=== PATIENT | female | born 1945 | race Caucasian/White ===

== ENCOUNTER → 2019-12-10 11:31 | Outpatient (BNVA) | payer MEDICARE, SELFPAY | PROVIDERS: PCP Family Medicine; Visit Provider Nurse Practitioner Family | DX: N39.0 Urinary tract infection, site not specified (principal) | CPT/HCPCS: 81003 ==

== ENCOUNTER 2020-08-25 15:09 | Emergency (ER) | payer MEDICARE, OTHER, SELFPAY ==
--- NOTE | 2020-08-25 | XRR_ITS ---
[facility] Final Radiology Report Call: [phone] assistance Online chat: [email or web address] Name: JEANNE WILSON Age: 74Years F Date: 08/25/2020 SSN: -- : 1945 Study: XR CHEST 1 VIEW Requesting Physician: Kelley Martinez Images: 1 Add?l Studies: Provided Clinical History: CP PROCEDURE INFORMATION: Exam: XR Chest, 1 View Exam date and time: 08/25/2020 4:55 PM Age: 74 years old Clinical indication: Chest pain; Type not specified; Additional info: Cp TECHNIQUE: Imaging protocol: XR of the chest Views: 1 view. COMPARISON: No relevant prior studies available. FINDINGS: Lungs: No consolidative pulmonary infiltrate noted. Pleural space: No pleural effusion. No pneumothorax. Heart/Mediastinum: No cardiomegaly. Calcified right hilar lymph node, consistent with old granulomatous disease. Bones/joints: Unremarkable. IMPRESSION: 1. No acute cardiopulmonary disease demonstrated. 2. Changes of old granulomatous disease are identified. Thank you for allowing us to participate in the care of your patient. Dictated and Authenticated by: Demetrius Morrissey MD 08/25/2020 5:12 PM Central Time ([place] & [place]) [facility] SYSTEMAbdelrahman
[2020-08-25 15:14] VITALS: BP 113/63; PULSE 92; RESP 18; TEMP 36.4; O2SAT 96; BMI 27.1
[2020-08-25 15:36] VITALS: BP 113/63; PULSE 89; RESP 18; O2SAT 99
[2020-08-25 15:47] LABS: Glucose Point of Care 128 mg/dL (70-110)
--- NOTE | 2020-08-25 16:39 | ECG_ITS ---
[facility] Test Date: 2020-08-25 Pat Name: Marilee Arreaga Department: Room: Gender: Female Optometric Coordinator: : 1945 Requested By: Kelley Reyes Order Number: [id number] Flako MD: Milo Ely M.D. Measurements Intervals [place] Rate: 94 P: 119 LA: 165 QRS: 153 QRSD: 84 T: 108 QT: 391 QTc: 489 Interpretive Statements SINUS RHYTHM ARM LEADS REVERSED [INVERTED P AND QRS IN I] ATYPICAL ECG No previous ECG available for comparison Electronically Signed On 08-25-2020 18:37:06 CDT by Milo Ely M.D. https://[email or web address].Gastrofyfranklin county memorial hospitalMcKinnon & Clarkemercy health.[employer]/store/NU/[id number] f
[2020-08-25 17:03] LABS: Basophils # 0.1 10^3/uL (0.0-0.1); Basophils % 0.5 %; Eosinophils # 0.1 10^3/uL (0.0-0.8); Eosinophils % 0.8 %; Hematocrit 41.9 % (37.0-47.0); Hemoglobin 13.6 g/dL (11.5-15.3); Lymphocytes # 1.7 10^3/uL (0.8-4.8); Lymphocytes % 16.2 %; Mean Corpuscular HGB Conc 32.5 g/dL (30.0-36.0); Mean Corpuscular Hemoglobin 30.9 pg (28.0-34.0); Mean Corpuscular Volume 95.2 fL (81-99); Mean Platelet Volume 9.5 fL (7.4-10.4); Monocytes # 0.7 10^3/uL (0.2-0.9); Monocytes % 6.1 %; Neutrophils # 8.15 10^3/uL (1.8-7.7); Neutrophils % 76.1 %; Nucleated Red Blood Cells % 0 %; Platelet Count 243 10^3/cmm (130-400); Red Cell Distribution Width 11.9 % (12.1-15.1); White Blood Count 10.7 10^3/uL (4.0-10.0)
[2020-08-25 17:17] LABS: INR 0.98 (0.8-1.2)
[2020-08-25 17:23] LABS: Lactic Sepsis W/Reflex 2.9 mmol/L (0.5-2.2)
[2020-08-25 17:30] LABS: Troponin(5th) Baseline 19 ng/L (0-10)
[2020-08-25 17:38] LABS: Alanine Aminotransferase 27 U/L (0-33); Albumin Level 4.2 g/dL (3.5-5.2); Alkaline Phosphatase 70 IU/L (35-105); Anion Gap 16.5 (5-19); Aspartate Amino Transferase 34 U/L (0-32); Blood Urea Nitrogen 20 mg/dL (8-23); Calcium 9.7 mg/dL (8.5-10.5); Carbon Dioxide 26 mmol/L (22-29); Chloride 100 mmol/L (98-107); Globulin 2.8 g/dL (1.3-4.6); Glucose 126 mg/dL (65-115); Lipase 74 U/L (13-60); Magnesium 2.1 mg/dL (1.7-2.3); NT Pro B Type Natriuretic Pept 58 pg/mL (0-125); Osmolality Calculated 290 mOsm/kg (285-295); Potassium 4.5 mmol/L (3.5-5.1); Sodium 138 mmol/L (136-145); Total Bilirubin 0.3 mg/dL (0.15-1.2)
[2020-08-25 17:39] VITALS: BP 115/71; PULSE 91; RESP 20; O2SAT 96
[2020-08-25 17:59] LABS: Procalcitonin 0.07 ng/mL (0-0.5)
[2020-08-25 18:49] LABS: Reflex Lactate Order REFLEX LACTIC ORDERD
[2020-08-25 18:57] LABS: Add Urine Microscopic? NO
[2020-08-25 19:06] LABS: Bilirubin Urine Neg (Negative); Blood Urine Neg (Negative); Glucose Urine UA Norm (Normal); Ketones Urine Negative (Negative); Leukocyte Esterase Urine Negative (Negative); Nitrate Urine Negative (Negative); Protein Urine Neg (Negative); Urine Appearance Clear (CLEAR); Urine Color Yellow (Yellow); Urobilinogen Urine Norm (Negative); pH Urine 5 (5-7)
[2020-08-25 19:17] VITALS: BP 134/77; PULSE 100; RESP 18; O2SAT 96
[2020-08-25 19:46] LABS: Lactic Acid level (Lactate) 3.1 mmol/L (0.5-2.2)
[2020-08-25] MEDS: sodium chloride 0.9% 1,000 ML 999 ML IV (19:46)
[2020-08-25 19:49] LABS: Troponin 5 2HR 14.58 ng/L (0-10)
[2020-08-25 19:50] LABS: Troponin 5 2HR Delta -4.42 ABS# (0-10)
[2020-08-25 20:58] VITALS: BP 129/71; PULSE 92; RESP 17; TEMP 36.7; O2SAT 99
--- NOTE | 2020-08-25 22:39 | ECG_ITS ---
[facility] Test Date: 2020-08-25 Pat Name: Marilee Arreaga Department: Room: Gender: Female Transition Specialist: : 1945 Requested By: Kelley Reyes Order Number: [id number] Flako MD: Milo Ely M.D. Measurements Intervals [place] Rate: 97 P: 45 AL: 138 QRS: 28 QRSD: 88 T: 81 QT: 366 QTc: 467 Interpretive Statements SINUS RHYTHM NONSPECIFIC T-WAVE ABNORMALITY Compared to ECG 08/25/2020 16:09:29 T-wave abnormality now present Electronically Signed On 08-25-2020 18:54:50 CDT by Milo Ely M.D. [email or web address].[facility] Universitygreenwood leflore hospitalPractical EHR Solutionspromedica bay park hospital.[employer]/store/OM/[id number]
--- NOTE | 2020-08-27 11:14 | W.ED.DIZZY ---
HPI - Dizziness General: Chief Complaint: Dizziness Stated Complaint: WEAKNESS/ LOW BP Time Seen by Provider: 08/25/20 15:34 History of Present Illness: HPI Narrative: This patient is a generally healthy, very active 74-year-old female who presents with an episode of diaphoresis and near syncope. She said she went about her normal routine this morning which included water aerobics and a light breakfast of toast and cheese. She then was at the [employer] garden doing some gardening and suddenly became diaphoretic and lightheaded. She had to sit down because she thought she was in a pass out. The symptoms eventually resolved although she said she still feels more tired than usual. She said it was not unusually hot out and she was not doing anything particularly strenuous when this happened. She has not had these symptoms previously. She denies any recent illnesses. She does have a history of irritable bowel syndrome and has been having a lot of diarrhea recently. MD elicited complaint: lightheadedness and near syncope Onset (ago): hour(s) (1) Timing: sudden onset Severity: moderate Description: lightheadedness and near-syncope Exacerbating factors: nothing Relieving factors: lying down Associated symptoms: Reports no associated symptoms and diaphoresis; Denies chest pain, headache(s), nausea or vomiting Associated neuro symptoms: Reports no associated symptoms; Deny numbness in extremities Review of Systems General: Reports: 10 or more systems reviewed and unremarkable except in HPI and below Const: Reports: diaphoresis Eyes: Denies: change in vision ENMT: Denies: odynophagia Card: Denies: chest pain or swelling of feet/ankles Resp: Denies: dyspnea, productive cough or non-productive cough GI: Reports: diarrhea and GI cramping; Denies: abdominal pain, nausea or vomiting : Denies: flank pain or difficulty voiding Musc: Denies: neck pain or back pain Skin/Breast: Denies: rash Neuro: Denies: headache(s), numbness in extremities or weakness in extremities Tacho/Lymph: Denies: easy bruising or easy bleeding PFSH ED PFSH: Social History Smoking and tobacco status: never smoked Alcohol intake: current Alcohol intake frequency: holidays/special occasions only Physical Exam Const: COMMON NORMALS: no acute distress, patient oriented x3, no limitations and alert GENERAL APPEARANCE: cooperative and comfortable HENMT: HEAD & SCALP: normal to inspection FACE & SINUS: normal facial exam Eye: GENERAL EYE: appearance normal, both eyes and all related structures Neck/C-Spine: COMMON NORMALS: supple, no meningeal signs and no JVD Chest: COMMONS NORMALS: normal inspection of the chest Resp: COMMON NORMALS: normal respiratory effort, No use of accessory muscles and clear to auscultation bilaterally AUSCULTATION: clear to auscultation bilaterally Cardio: COMMON NORMALS: no JVD, regular rate, regular rhythm and No murmurs present (Cardio) RATE: regular rate RHYTHM: regular rhythm GI: COMMON NORMALS: Normal to inspection, nondistended, normoactive bowel sounds present, Soft to palpation and non-tender INSPECTION: Yes normal to inspection AUSCULTATION: Yes normoactive bowel sounds PALPATION: Yes Soft to palpation Back/Pelvis: COMMON NORMALS: thoracic and lumbar spine normal to inspection Extremity: COMMON NORMALS: normal to inspection Neuro: COMMON NORMALS: patient oriented x3, moves all extremities, no focal motor deficits and no sensory deficits noted SENSORIUM/ORIENTATION: Yes alert MENINGEAL SIGNS: Yes no meningeal signs Psych: COMMON NORMALS: mental status grossly normal, cooperative and normal affect Skin: COMMON NORMALS: no rashes or lesions noted and turgor normal GENERAL SKIN EXAM: no rashes or lesions noted and turgor normal Course ED course: Patient's work-up was unremarkable for any cardiac dysfunction. She felt better after some fluids. I think she may have just been dehydrated. We discussed that although we did not find anything today she may need further evaluation and should definitely follow-up with her primary care doctor. Vital Signs: Vital signs: Vital Signs Temperature 98.1 F 08/25/20 20:58 Pulse Rate 92 08/25/20 20:58 Respiratory Rate 17 08/25/20 20:58 Blood Pressure 129/71 08/25/20 20:58 Pulse Oximetry 99 08/25/20 20:58 MDM - Dizziness Lab Data: Labs: Lab Results 08/25/20 08/25/20 08/25/20 Range/Units 15:43 16:54 16:54 WBC 10.7 H (4.0-10.0) 10^3/ uL RBC 4.40 (4.1-5.3) 10^6/u L Hgb 13.6 (11.5-15.3) g/dL Hct 41.9 (37.0-47.0) % MCV 95.2 (81-99) fL MCH 30.9 (28.0-34.0) pg MCHC 32.5 (30.0-36.0) g/dL RDW 11.9 L (12.1-15.1) % Plt Count 243 (130-400) 10^3/c mm MPV 9.5 (7.4-10.4) fL Neut % (Auto) 76.1 % Lymph % (Auto) 16.2 % Runnels % (Auto) 6.1 % Eos % (Auto) 0.8 % Baso % (Auto) 0.5 % Neut # (Auto) 8.15 H (1.8-7.7) 10^3/u L Lymph # (Auto) 1.7 (0.8-4.8) 10^3/u L Runnels # (Auto) 0.7 (0.2-0.9) 10^3/u L Eos # (Auto) 0.1 (0.0-0.8) 10^3/u L Baso # (Auto) 0.1 (0.0-0.1) 10^3/u L Nucleated RBC % (a uto) 0 % Nucleated RBCs # 0.0 /100WBC PT (12.1-14.9) SECO NDS INR (0.8-1.2) Sodium 138 (136-145) mmol/L Potassium 4.5 (3.5-5.1) mmol/L Chloride 100 (98-107) mmol/L Carbon Dioxide 26 (22-29) mmol/L Anion Gap 16.5 (5-19) BUN 20 (8-23) mg/dL Creatinine 1.2 H (0.5-0.9) mg/dL GFR Calculation Not Reportable Glucose 126 H (65-115) mg/dL POC Glucose 128 (70-110) mg/dL Calculated Osmolal ity 290 (285-295) mOsm/k g Lactic Acid (0.5-2.2) mmol/L Lactic Acid (Sepsi s) (0.5-2.2) mmol/L Calcium 9.7 (8.5-10.5) mg/dL Magnesium 2.1 (1.7-2.3) mg/dL Total Bilirubin 0.3 (0.15-1.2) mg/dL AST 34 H (0-32) U/L ALT 27 (0-33) U/L Alkaline Phosphata se 70 (35-105) IU/L Troponin T Baselin e (0-10) ng/L Troponin T 120 Min three affiliated (0-10) ng/L Delta Troponin T (0-10) ABS# NT-Pro-B Natriuret Pep 58 (0-125) pg/mL Total Protein 7.0 (6.6-8.7) g/dL Albumin 4.2 (3.5-5.2) g/dL Globulin 2.8 (1.3-4.6) g/dL Lipase 74 H (13-60) U/L Procalcitonin 0.07 (0-0.5) ng/mL Urine Color (Yellow) Urine Appearance (CLEAR) Urine pH (5-7) Ur Specific Gravit y (1.005-1.030) Urine Protein (Negative) Urine Glucose (UA) (Normal) Urine Ketones (Negative) Urine Blood (Negative) Urine Nitrate (Negative) Urine Bilirubin (Negative) Urine Urobilinogen (Negative) mg/dL Ur Leukocyte Janeth ase (Negative) 08/25/20 08/25/20 08/25/20 Range/Units 16:54 16:54 16:54 WBC (4.0-10.0) 10^3/ uL RBC (4.1-5.3) 10^6/u L Hgb (11.5-15.3) g/dL Hct (37.0-47.0) % MCV (81-99) fL MCH (28.0-34.0) pg MCHC (30.0-36.0) g/dL RDW (12.1-15.1) % Plt Count (130-400) 10^3/c mm MPV (7.4-10.4) fL Neut % (Auto) % Lymph % (Auto) % Runnels % (Auto) % Eos % (Auto) % Baso % (Auto) % Neut # (Auto) (1.8-7.7) 10^3/u L Lymph # (Auto) (0.8-4.8) 10^3/u L Runnels # (Auto) (0.2-0.9) 10^3/u L Eos # (Auto) (0.0-0.8) 10^3/u L Baso # (Auto) (0.0-0.1) 10^3/u L Nucleated RBC % (a uto) % Nucleated RBCs # /100WBC PT 13.30 (12.1-14.9) SECO NDS INR 0.98 (0.8-1.2) Sodium (136-145) mmol/L Potassium (3.5-5.1) mmol/L Chloride (98-107) mmol/L Carbon Dioxide (22-29) mmol/L Anion Gap (5-19) BUN (8-23) mg/dL Creatinine (0.5-0.9) mg/dL GFR Calculation Glucose (65-115) mg/dL POC Glucose (70-110) mg/dL Calculated Osmolal ity (285-295) mOsm/k g Lactic Acid 2.9 H (0.5-2.2) mmol/L Lactic Acid (Sepsi s) (0.5-2.2) mmol/L Calcium (8.5-10.5) mg/dL Magnesium (1.7-2.3) mg/dL Total Bilirubin (0.15-1.2) mg/dL AST (0-32) U/L ALT (0-33) U/L Alkaline Phosphata se (35-105) IU/L Troponin T Baselin e 19 H (0-10) ng/L Troponin T 120 Min three affiliated (0-10) ng/L Delta Troponin T (0-10) ABS# NT-Pro-B Natriuret Pep (0-125) pg/mL Total Protein (6.6-8.7) g/dL Albumin (3.5-5.2) g/dL Globulin (1.3-4.6) g/dL Lipase (13-60) U/L Procalcitonin (0-0.5) ng/mL Urine Color (Yellow) Urine Appearance (CLEAR) Urine pH (5-7) Ur Specific Gravit y (1.005-1.030) Urine Protein (Negative) Urine Glucose (UA) (Normal) Urine Ketones (Negative) Urine Blood (Negative) Urine Nitrate (Negative) Urine Bilirubin (Negative) Urine Urobilinogen (Negative) mg/dL Ur Leukocyte Janeth ase (Negative) 08/25/20 08/25/20 08/25/20 Range/Units 18:47 19:20 19:20 WBC (4.0-10.0) 10^3/ uL RBC (4.1-5.3) 10^6/u L Hgb (11.5-15.3) g/dL Hct (37.0-47.0) % MCV (81-99) fL MCH (28.0-34.0) pg MCHC (30.0-36.0) g/dL RDW (12.1-15.1) % Plt Count (130-400) 10^3/c mm MPV (7.4-10.4) fL Neut % (Auto) % Lymph % (Auto) % Runnels % (Auto) % Eos % (Auto) % Baso % (Auto) % Neut # (Auto) (1.8-7.7) 10^3/u L Lymph # (Auto) (0.8-4.8) 10^3/u L Runnels # (Auto) (0.2-0.9) 10^3/u L Eos # (Auto) (0.0-0.8) 10^3/u L Baso # (Auto) (0.0-0.1) 10^3/u L Nucleated RBC % (a uto) % Nucleated RBCs # /100WBC PT (12.1-14.9) SECO NDS INR (0.8-1.2) Sodium (136-145) mmol/L Potassium (3.5-5.1) mmol/L Chloride (98-107) mmol/L Carbon Dioxide (22-29) mmol/L Anion Gap (5-19) BUN (8-23) mg/dL Creatinine (0.5-0.9) mg/dL GFR Calculation Glucose (65-115) mg/dL POC Glucose (70-110) mg/dL Calculated Osmolal ity (285-295) mOsm/k g Lactic Acid (0.5-2.2) mmol/L Lactic Acid (Sepsi s) 3.1 H (0.5-2.2) mmol/L Calcium (8.5-10.5) mg/dL Magnesium (1.7-2.3) mg/dL Total Bilirubin (0.15-1.2) mg/dL AST (0-32) U/L ALT (0-33) U/L Alkaline Phosphata se (35-105) IU/L Troponin T Baselin e (0-10) ng/L Troponin T 120 Min three affiliated 14.58 H (0-10) ng/L Delta Troponin T -4.42 L (0-10) ABS# NT-Pro-B Natriuret Pep (0-125) pg/mL Total Protein (6.6-8.7) g/dL Albumin (3.5-5.2) g/dL Globulin (1.3-4.6) g/dL Lipase (13-60) U/L Procalcitonin (0-0.5) ng/mL Urine Color Yellow (Yellow) Urine Appearance Clear (CLEAR) Urine pH 5 (5-7) Ur Specific Gravit y 1.020 (1.005-1.030) Urine Protein Neg (Negative) Urine Glucose (UA) Norm (Normal) Urine Ketones Negative (Negative) Urine Blood Neg (Negative) Urine Nitrate Negative (Negative) Urine Bilirubin Neg (Negative) Urine Urobilinogen Norm (Negative) mg/dL Ur Leukocyte Janeth ase Negative (Negative) Discharge Plan Discharge Patient Disposition: Home Clinical Impression: Postural dizziness with near syncope Condition: Stable Prescriptions: No Action venlafaxine 75 mg capsule,extended release 24hr 75 mg PO BID RF: 0 acyclovir 200 mg capsule 200 mg PO DAILY RF: 0 hydrocodone-acetaminophen 7.5-325 mg tablet 1 tab PO BID PRN (Reason: Pain) RF: 0 lisinopril-hydrochlorothiazide 20-12.5 mg Tablet 1 tab PO DAILY RF: 0 Discharge Orders: Discharge Order (Routine); Ordered 08/25/20 Ordered By: Kelely Martinez Referrals: Arnaud Blair DO [Primary Care Provider] - Discharge Diet: Usual diet Discharge Activity: Resume usual activity Patient Instructions: Dehydration (ED), Near Syncope (ED) Activity Restrictions/Additional Instructions: Make sure to drink plenty of fluids and eat regular snacks and meals. Rest. Follow-up with your doctor to discuss today's episode and to determine if further evaluation and treatment is needed. Return to the emergency department if another episode occurs or if there are any other new or concerning symptoms. Discharge Date/Time: 08/25/20 20:58 Coding Level of Care Code ED Guitar Maker Hand for Ana Ragsdale
== END 2020-08-25 20:58 | disposition home or self-care (01) ==
PROVIDERS: Emergency Provider Emergency Medicine; PCP Family Medicine
DX: R55 Syncope and collapse (principal); R42 Dizziness and giddiness; R07.9 Chest pain, unspecified
CPT/HCPCS: 12345; 36415; 36416; 71045; 80053; 81003; 82962; 83605; 83690; 83735; 83880; 84145; 84484; 85025; 85610; 93005; 96360; 99284; J7030

== ENCOUNTER 2021-09-18 12:18 | Outpatient (RCR) | payer MEDICARE, OTHER, SELFPAY | END 2021-10-16 23:59 | disposition home or self-care (01) | LOC: SPT 12:18 | PROVIDERS: PCP Family Medicine; Referring Provider Family Medicine; Visit Provider Family Medicine | DX: H81.10 Benign paroxysmal vertigo, unspecified ear (principal) | CPT/HCPCS: 95992; 97162 ==

== ENCOUNTER 2021-10-17 06:00 | Outpatient (RCR) | payer MEDICARE, OTHER, SELFPAY | END 2021-11-16 23:59 | disposition home or self-care (01) | LOC: SPT 06:00 | PROVIDERS: PCP Family Medicine; Referring Provider Family Medicine; Visit Provider Family Medicine | DX: H81.10 Benign paroxysmal vertigo, unspecified ear (principal) | CPT/HCPCS: 95992; 97164 ==

== ENCOUNTER 2022-01-15 09:24 | Outpatient (CLI) | payer MEDICARE, OTHER, SELFPAY ==
--- NOTE | 2022-01-15 09:42 | XR_ITS ---
WS: [id number] PELVIS: AP VIEW SUBMITTED HISTORY: PELVIC PAIN COMPARISON: None available. Mild narrowing of the SI joints and hip joints. Moderate narrowing of the L4-5 disc space which is as ymmetric and greatest on the LEFT. Chronic endplate degenerative changes at L4-5. No soft tissue mass es. No destructive bone lesions. There is a pain pump centered over the LEFT ilium. XR/XR pelvis 1-2V* [id number] IMPRESSION: 1. No fracture or destructive bone lesions. 2. Moderate degenerative disc disease and hypertrophic osteophytes at L4-5. 3. Very mild SI joint and hip joint narrowing.
--- NOTE | 2022-01-15 09:42 | XR_ITS ---
WS: [id number] LUMBAR SPINE: 3 VIEWS TECHNIQUE: AP, lateral and L5-S1 spot. HISTORY: LUMBAR RADICULOPATHY COMPARISON: None available. Mild LEFT rotoscoliosis of the lumbar spine. L5 anterolisthesis by 3 mm. Asymmetric disc space narrow ing due to the curvature. More significant disc space narrowing and facet joint arthritis at L4-5. Pe dicles are all identified. No fractures. No destructive bone lesion. Mild narrowing of the SI joints. Generator of a pain pump over the LEFT ilium. Lead wires extend anterior to the sacrum. XR/XR lumbar spine 2-3V* [id number] IMPRESSION: 1. Mild LEFT rotoscoliosis lumbar spine with diffuse asymmetric disc space kenzie rowing and facet arthritis. 2. Most significant facet joint arthritis and disc space narrowing is at L4-5. 3. Very slight anterolisthesis of L5 by 3 mm.
== END 2022-01-15 09:25 | disposition home or self-care (01) ==
PROVIDERS: PCP Family Medicine; Visit Provider Family Medicine
DX: M54.16 Radiculopathy, lumbar region (principal); M51.36 Other intervertebral disc degeneration, lumbar region; M25.78 Osteophyte, vertebrae; M41.86 Other forms of scoliosis, lumbar region; M47.816 Spondylosis without myelopathy or radiculopathy, lumbar region
CPT/HCPCS: 72100; 72170

== ENCOUNTER → 2022-08-06 10:41 | Outpatient (BNVA) | payer MEDICARE, OTHER, SELFPAY | PROVIDERS: PCP Family Medicine; Visit Provider Internal Medicine Cardiovascular Disease | DX: R55 Syncope and collapse (principal); R00.0 Tachycardia, unspecified; R00.2 Palpitations; Z79.01 Long term (current) use of anticoagulants; R53.1 Weakness; I12.9 Hypertensive chronic kidney disease with stage 1 through stage 4 chronic kidney disease, or unspecified chronic kidney disease; N18.9 Chronic kidney disease, unspecified | CPT/HCPCS: 36415; 80053; 84443; 85025; 93005; 99204; 99205 ==

== ENCOUNTER 2022-09-18 07:42 | Outpatient (CLI) | payer MEDICARE, OTHER, SELFPAY ==
--- NOTE | 2022-09-18 08:45 | US_ITS ---
WS: [id number] RIGHT UPPER QUADRANT ULTRASOUND HISTORY: Elevated transaminases COMPARISON: None available. Liver: 16.3 cm in length. Normal size liver. Liver is very mildly echogenic and course. No mass or bi le duct dilatation. Portal Vein: Normal hepatopetal flow with monophasic waveform. Gallbladder: Normally distended gallbladder with no stones or wall thickening. CBD: 0.4 cm Pancreas: Normal size and echogenicity. Right kidney: 10.6 cm in length. Normal size and echogenicity. No hydronephrosis or mass. Aorta and IVC: Unremarkable abdominal aorta and IVC. No ascites. US/US liver [id number] IMPRESSION: Normal RIGHT upper quadrant ultrasound.
== END 2022-09-18 07:43 | disposition home or self-care (01) ==
LOC: RAD 07:43
PROVIDERS: PCP Family Medicine; Visit Provider Family Medicine
DX: R74.01 Elevation of levels of liver transaminase levels (principal)
CPT/HCPCS: 76705

== ENCOUNTER 2022-10-03 12:47 | Outpatient (CLI) | payer MEDICARE, OTHER, SELFPAY ==
--- NOTE | 2022-10-03 13:30 | USCV_ITS ---
Margejocy Marilee Age: 76 Gender: F : 1945 Exam Date: 10/03/2022 13:26 Ordering Phys: Gladis Elizabeth MD ([email or web address]) Technologist: Pilo Majano [place] [facility] [place]ication: abnormal ekg BP: 140 / 102 HR: 87 Rhythm: Sinus Technical Quality: Adequate MEASUREMENTS (Male / Female) Normal Values 2D ECHO LV Diastolic Diameter PLAX 2.1 cm 4.2 - 5.9 / 3.9 - 5.3 cm LV Systolic Diameter PLAX 1.5 cm IVS Diastolic Thickness 0.8 cm 0.6 - 1.0 / 0.6 - 0.9 cm IVS Systolic Thickness 0.8 cm LVPW Diastolic Thickness 1.1 cm 0.6 - 1.0 / 0.6 - 0.9 cm LVPW Systolic Thickness 0.9 cm LVOT Diameter 2.0 cm LV Ejection Fraction 2D Teich 59.9 % LV Ejection Fraction MOD 2C 63.5 % LV Ejection Fraction 2C AL 63.0 % LA Diameter 3.0 cm LA Width 2.6 cm LA Height 3.7 cm RA Width 2.3 cm RA Height 3.3 cm Aorta at Sinotubular Diameter 2.4 cm IVC Diameter 1.4 cm M-MODE Aortic Annulus Diameter 2.2 cm LA Ao Ratio MM 1.4 MV E Point Septal Separation 0.6 cm DOPPLER AV Peak Velocity 105.0 cm/s LVOT Peak Velocity 92.0 cm/s AV Area Cont Eq vti 2.4 cm squared AV Area Cont Eq pk 2.8 cm squared MV Peak Velocity 102.0 cm/s MV Area PHT 5.0 cm squared Mitral E to A Ratio 0.4 MV E' Velocity 22.0 cm/s Mitral E to MV E' Ratio 6.6 Mitral E to LV E' Lateral Ratio 6.6 Mitral E to LV E' Septal Ratio 6.6 TR Peak Velocity 232.1 cm/s TR Peak Gradient 21.5 mmHg TR Mean Velocity 191.6 cm/s TR Mean Gradient 14.9 mmHg TR Velocity Time Integral 58.3 cm Right Atrial Pressure 3.0 mmHg Pulmonary Artery Systolic Pressu 24.5 mmHg PV Peak Velocity 72.0 cm/s RV Acceleration Time 0.1 s RV Ejection Time 0.2 s RV AcT/ET 0.5 FINDINGS Left Ventricle Normal left ventricular size and systolic function, EF 67 %. No regional wall motion abnormalities. Grade I/IV diastolic dysfunction (abnormal relaxation filling pattern), normal to mildly elevated filling pressures. Right Ventricle The right ventricle is normal in size and function. Right Atrium The right atrium is normal in size. Left Atrium The left atrium is normal in size. Mitral Valve Thickened mitral valve. Trace mitral valve regurgitation. Aortic Valve No gross abnormalities noted Tricuspid Valve Trace to mild tricuspid valve regurgitation. Pulmonic Valve Pulmonic valve not well visualized. Pericardium Normal pericardium without effusion. Aorta Normal aortic annulus size. IVC Normal inferior vena cava. CONCLUSIONS Normal left ventricular size and systolic function, EF 67 %. No regional wall motion abnormalities. Grade I/IV diastolic dysfunction (abnormal relaxation filling pattern), normal to mildly elevated filling pressures. Thickened mitral valve. Trace mitral valve regurgitation. Trace to mild tricuspid valve regurgitation. Estimated pulmonary artery peak systolic pressure was 25 mmHg There is no pericardial effusion. No similar previous studies are available for comparison Dr Gladis Elizabeth MD [facility] (Electronically Signed) Final Date: 03 October 2022 21:31 S
== END 2022-10-03 12:48 | disposition home or self-care (01) ==
LOC: RAD 12:48
PROVIDERS: PCP Family Medicine; Visit Provider Internal Medicine Cardiovascular Disease
DX: R00.0 Tachycardia, unspecified (principal); R06.09 Other forms of dyspnea; I08.1 Rheumatic disorders of both mitral and tricuspid valves
CPT/HCPCS: 93306

== ENCOUNTER → 2022-10-30 10:20 | Outpatient (BNVA) | payer MEDICARE, SELFPAY | PROVIDERS: PCP Family Medicine; Visit Provider Nurse Practitioner Family | DX: R55 Syncope and collapse (principal) | CPT/HCPCS: 99213 ==

== ENCOUNTER 2023-01-13 07:03 | Outpatient (CLI) | payer MEDICARE, SELFPAY ==
[2023-01-13 07:34] VITALS: BMI 26.4
--- NOTE | 2023-01-13 07:37 | ECG_ITS ---
[facility] Test Date: 2023-01-13 Pat Name: Marilee Arreaga Department: Room: Gender: Female Banking Teacher: : 1945 Requested By: Glaids Elizabeth Order Number: [id number] Flako MD: Gladis Elizabeth M.D. Interpretive Statements NAME OF STUDY: LEXISCAN SESTAMIBI STRESS TEST INDICATION: Shortness of Breath; Chest Pain, PROCEDURE: At the baseline, the EKG revealed normal sinus rhythm with normal ST Ts. The baseline heart was 68 bpm with a blood pressue of 168/90 mm of Hg Lexiscan was infused over a period of 20 seconds. A total of 0.4 milligrams of Lexiscan was infused. The stress phase was continued for a total of 5 minutes. Heart rate at the end of the stress phase was left anterior descending artery bpm with a blood pressure 173/73 mm of Hg. The EKG at the peak infusion revealed no significant changes. Sestamibi was injected 20 seconds after the Lexiscan infusion. Heart rate at the end of the recovery phase was 79 bpm with a blood pressure of 167/84 mm of Hg. CONCLUSION: 1. No significant EKG changes with the LexiScan infusion 2. No LexiScan induced chest pain or cardiac arrhythmia 3. Normal blood pressure and heart rate response 4. Sestamibi/sestamibi perfusion scan pending; see separate report. Electronically Signed On 01-18-2023 15:46:03 BOGGER OPERATOR by Gladis Elizabeth M.D. [id number]
--- NOTE | 2023-01-13 07:37 | NMCV_ITS ---
NM shoaib perf SPECT r/s* [id number] Marilee Arreaga Age: 77 Gender: F : 1945 Exam Date: 01/13/2023 08:17 Ordering Phys: Gladis Elizabeth MD ([email or web address]) Technologist: ALEJANDRA Moreno Exam Location: [facility] Indications: DIZZY STRESS TEST Please [facility] IMAGE PROTOCOL Rest/Stress 1 Lexiscan Day Radiopharmaceutical Dose (mCi) Administration Site Administered by Rest: Tc-99m 10.5 IV LAEJANDRA Lazar Sestamibi Stress:Tc-99m 32.5 IV ALEJANDRA Lazar Sestamibi Rest: 13-Jan-2023 60 Discovery 630 Stress: 13-Jan-2023 30 Discovery 630 0.4mg Lexiscan. Images obtained in supine and prone position. SPECT RESULTS Technical Quality: Excellent Raw Data Analysis: Normal Image Corrections: No attenuation or motion correction applied Summed Stress Score: 0 Summed Rest Score: 0 Summed Difference Score: 0 PERFUSION FINDINGS Fairly uniform myocardial tracer uptake. No significant perfusion abnormalities FUNCTIONAL RESULTS (calculated via Gated SPECT) Stress Image LV EF (%): 73 Stress EDV (mL):55 TID: 1 Stress ESV (mL):15 FUNCTIONAL FINDINGS: Segmental wall motion analysis revealing no gross wall motion abnormalities IMPRESSIONS 1. Myocardial perfusion imaging revealing uniform myocardial tracer uptake with no significant perfusion abnormalities. 2. Normal LV ejection fraction of 73%. 3. LV wall motion analysis revealing no gross wall motion abnormalities. 4. Normal LV volume No similar previous studies are available for comparison Dr Gladis Elizabeth MD FAC (Electronically Signed) Final Date: 13 January 2023 13:38 S
[2023-01-13] MEDS: regadenoson 0.4 Mg/5 ml Syringe IVP (08:58)
[2023-01-13 09:17] VITALS: BP 167/84; PULSE 77
== END 2023-01-13 07:04 | disposition home or self-care (01) ==
LOC: CDL 07:08
PROVIDERS: PCP Family Medicine; Visit Provider Internal Medicine Cardiovascular Disease
DX: R42 Dizziness and giddiness (principal)
CPT/HCPCS: 36415; 78452; 93017; 96374; A9500; J2785

== ENCOUNTER → 2023-05-05 14:41 | Outpatient (BNVA) | payer MEDICARE, SELFPAY | PROVIDERS: PCP Family Medicine; Visit Provider Specialist | DX: I10 Essential (primary) hypertension (principal); R55 Syncope and collapse | CPT/HCPCS: 99214 ==

== ENCOUNTER → 2023-07-28 15:13 | Outpatient (BNVA) | payer MEDICARE, SELFPAY | PROVIDERS: PCP Family Medicine; Visit Provider Family Medicine | DX: Z51.81 Encounter for therapeutic drug level monitoring (principal); R61 Generalized hyperhidrosis; E03.9 Hypothyroidism, unspecified; E53.8 Deficiency of other specified B group vitamins; R00.2 Palpitations; R73.09 Other abnormal glucose; I10 Essential (primary) hypertension; R00.0 Tachycardia, unspecified; Z87.39 Personal history of other diseases of the musculoskeletal system and connective tissue; R74.01 Elevation of levels of liver transaminase levels; R11.2 Nausea with vomiting, unspecified; R32 Unspecified urinary incontinence; R41.0 Disorientation, unspecified | CPT/HCPCS: 85025; 85651 ==

== ENCOUNTER → 2023-08-11 14:59 | Outpatient (BNVA) | payer MEDICARE, SELFPAY | PROVIDERS: PCP Family Medicine; Visit Provider Family Medicine | DX: Z51.81 Encounter for therapeutic drug level monitoring (principal); R61 Generalized hyperhidrosis; E11.9 Type 2 diabetes mellitus without complications; R00.2 Palpitations; I10 Essential (primary) hypertension; R32 Unspecified urinary incontinence | CPT/HCPCS: 80053; 81000; 83036; 83735; 85025; 85651; 86141 ==

== ENCOUNTER → 2024-03-24 12:48 | Outpatient (BNVA) | payer MEDICARE, SELFPAY | PROVIDERS: PCP Family Medicine; Visit Provider Family Medicine | DX: Z51.81 Encounter for therapeutic drug level monitoring (principal); R03.0 Elevated blood-pressure reading, without diagnosis of hypertension; M79.10 Myalgia, unspecified site | CPT/HCPCS: 80053; 83735; 84550; 85025 ==

== ENCOUNTER → 2024-03-29 14:03 | Outpatient (BNVA) | payer MEDICARE, SELFPAY | PROVIDERS: PCP Family Medicine; Visit Provider Podiatrist Foot & Ankle Surgery | DX: M21.611 Bunion of right foot; M21.612 Bunion of left foot; M77.9 Enthesopathy, unspecified | CPT/HCPCS: 73630; 99203 ==

== ENCOUNTER 2024-10-11 11:34 | Emergency (ER) | payer MEDICARE, SELFPAY ==
[2024-10-11] VITALS (8 sets, daily range): BP systolic 120–161; BP diastolic 74–93; PULSE 72–85; RESP 16–18; TEMP 36.6; O2SAT 98–100
--- NOTE | 2024-10-11 11:38 | ECG_ITS ---
[employer] Test Date: 2024-10-11 Pat Name: Marilee Arreaga Department: Room: Gender: Female Relay Checker: : 1945 Requested By: Pito Reyes Order Number: [id number] Flako MD: ISABELLA EVANS Measurements Intervals [place] Rate: 78 P: 57 MS: 163 QRS: 10 QRSD: 76 T: 76 QT: 404 QTc: 461 Interpretive Statements SINUS RHYTHM POSSIBLE RIGHT VENTRICULAR CONDUCTION DELAY [RSR (QR) IN V1/V2] MINIMAL VOLTAGE CRITERIA FOR LVH, CONSIDER NORMAL VARIANT [MEETS CRITERIA IN ONE OF: R(aVL), S(V1), R(V5), R(V5/V6)+S(V1)] NONSPECIFIC T-WAVE ABNORMALITY Compared to ECG 08/25/2020 18:34:08 No significant changes Electronically Signed On 10-11-2024 18:53:35 TOWN MANAGER by ISABELLA EVANS [id number] f
--- NOTE | 2024-10-11 11:38 | XR_ITS ---
WS: [id number] Portable AP semiupright chest, 10/11/2024 Clinical Data: dyspnea/cough Comparison: Portable chest, 08/25/2020 Findings: No nodules, masses or effusions are seen. The heart is normal. The pulmonary vascularity is not increased. No pneumonia or pneumothorax is seen. The aortic arch and descending thoracic aorta s how minimal calcification and tortuosity. There is a dextroscoliosis of the thoracic spine. XR/XR chest 1V portable [id number] Impression: Atherosclerosis.
--- NOTE | 2024-10-11 11:41 | W.ED.SYNCOPE ---
HPI - Syncope General: Chief Complaint: Syncope Stated Complaint: syncopal ep Time Seen by Provider: 10/11/24 11:37 History of Present Illness: 78-year-old female had a syncopal-like episode while at work. She became lightheaded she passed out. She kind of had an aura she felt like she was sweating prior to that she denies any chest discomfort or pain. On arrival here she is still somewhat confused and disoriented she can answer some questions but has difficulty with others. She gets slightly confused as to time place but is aware that she is not tracking well. Later in the visit when I reevaluated her she had completely resolved all of her symptoms. She does complaining of mild headache. Associated symptoms: Deny abdominal pain, chest pain or fever(s) Related Data Home Medications Medication Instructions Recorded Confirmed magnesium oxide 500 mg PO DAILY 08/06/22 10/11/24 allopurinol 300 mg tablet 300 mg PO DAILY 10/11/24 10/11/24 venlafaxine 150 mg 150 mg PO DAILY 10/11/24 10/11/24 capsule,extended release 24 hr Previous Rx's Medication Instructions Recorded lisinopril 20 mg tablet 20 mg PO DAILY #90 tabs 09/23/23 meloxicam 15 mg tablet 15 mg PO DAILY #30 tabs 03/29/24 hydrocodone 10 mg-acetaminophen 1 tab PO Q6H 30 days #90 tabs 09/23/24 325 mg tablet metoprolol tartrate 50 mg tablet 50 mg PO BID #60 tabs 09/30/24 Allergies Allergy/AdvReac Type Severity Reaction Status Date / Time cephalexin [From Keflex] Allergy rash Verified 03/29/24 13:56 erythromycin base Allergy rash Verified 03/29/24 13:56 Penicillins Allergy rash Verified 03/29/24 13:56 Sulfa (Sulfonamide Allergy rash Verified 03/29/24 13:56 Antibiotics) Review of Systems Const: Denies: fever(s) or chills Card: Denies: chest pain Resp: Denies: dyspnea GI: Denies: abdominal pain : Denies: dysuria, urinary frequency or urinary urgency Musc: Denies: neck pain or back pain Skin/Breast: Denies: rash PFSH ED PFSH: Medical History Diaphoresis Otitis media of left ear Depression History of irritable bowel syndrome HTN (hypertension), benign Surgical History History of abdominal surgery Prolapse , not sure, history of bladder stimulator History of delivery Family History Father Cancer Mother Dementia Sister Diabetes Denies family history of CAD (coronary artery disease) Clotting disorder Chronic kidney disease (CKD) Suicide Anesthesia complication Bleeding disorder Lung disease Stroke Social History Smoking and tobacco/nicotine status: never used tobacco/nicotine Alcohol intake: current Alcohol intake frequency: holidays/special occasions only Substance/Drug Use: never Physical Exam Const: GENERAL APPEARANCE: cooperative ORIENTATION/CONSCIOUSNESS: Yes awake HENMT: COMMON NORMALS: normocephalic, atraumatic and hearing grossly normal bilaterally HEAD & SCALP: normocephalic and atraumatic Resp: COMMON NORMALS: normal respiratory effort, No retractions, No use of accessory muscles and clear to auscultation bilaterally AUSCULTATION: clear to auscultation bilaterally Cardio: COMMON NORMALS: regular rate, regular rhythm and No murmurs present (Cardio) RATE: regular rate RHYTHM: regular rhythm GI: COMMON NORMALS: Soft to palpation and No hepatosplenomegaly present AUSCULTATION: Yes normoactive bowel sounds PALPATION: Yes Soft to palpation, No Tenderness to palpation present (GI), No Guarding due to palpation present (GI) and Yes No hepatosplenomegaly present Extremity: COMMON NORMALS: normal to inspection, capillary refill normal, no clubbing, cyanosis or edema, no calf tenderness and no pedal edema Neuro: OTHER: Abbreviated NIH score evaluation did not show any significant deficits. Skin: COMMON NORMALS: no rashes or lesions noted GENERAL SKIN EXAM: no rashes or lesions noted Course Vital Signs: Vital signs: Vital Signs Temperature 97.8 F 10/11/24 11:35 Pulse Rate 73 10/11/24 15:25 Respiratory Rate 16 10/11/24 13:36 Blood Pressure 147/76 10/11/24 15:25 Pulse Oximetry 99 10/11/24 15:25 Oxygen Delivery Me thod Room Air 10/11/24 13:36 MDM - Syncope Medical Decision Making Initially patient appears to be postictal. Her lactic acid is elevated and then on repeat had decreased from 5.5-2.2 with really no significant intervention. Troponins trended negative EKGs did not show any abnormalities all of her confusion resolved with time. Will go ahead and discharge patient home we will set her up for an echocardiogram also going to set her up to have an EEG and follow-up with neurology. Suspect she may have had a seizure based on what appeared to be a postictal like phase which resolved spontaneously and the transient elevation in her lactic acid. She has no signs of infection at this time her white count is normal. All of her symptoms have resolved she wishes to go home which I think is appropriate. Return if she has further problems. She should avoid driving until this is further evaluated. Medical Records I reviewed the patient's medical records. Lab Data I reviewed the patient's lab results. 10/11/24 10:24 10/11/24 10:24 Radiology Impressions Chest X-Ray 10/11/24 11:38 Impression: Atherosclerosis. Head CT 10/11/24 11:56 IMPRESSION: 1. No acute intracranial hemorrhage or edema. 2. Marked cerebral and cerebellar atrophy with mild small vessel ischemic disease. 3. Remote lacunar infarct LEFT temitope. Laboratory Results WBC 10.00 10^3/uL (3.29-11.43) 10/11/24 10:24 RBC 4.94 10^6/uL (3.85-5.65) 10/11/24 10:24 Hgb 15.40 g/dL (11.27-16.99) 10/11/24 10:24 Hct 45.6 % (36-47) 10/11/24 10:24 MCV 92.3 fl (85-98) 10/11/24 10:24 MCH 31.2 pg (27-33) 10/11/24 10:24 MCHC 33.8 g/dL (30-55) 10/11/24 10:24 RDW 12.6 % (12.1-15.1) 10/11/24 10:24 Plt Count 361 10^3/cmm (157-399) 10/11/24 10:24 MPV 10.5 fL (7.4-10.4) H 10/11/24 10:24 Neut % (Auto) 57.8 % 10/11/24 10:24 Lymph % (Auto) 33.8 % 10/11/24 10:24 [place] % (Auto) 5.3 % 10/11/24 10:24 Eos % (Auto) 2.2 % 10/11/24 10:24 Baso % (Auto) 0.4 % 10/11/24 10:24 Neut # (Auto) 5.78 10^3/uL (1.8-7.7) 10/11/24 10:24 Lymph # (Auto) 3.4 10^3/uL (0.8-4.8) 10/11/24 10:24 [place] # (Auto) 0.5 10^3/uL (0.2-0.9) 10/11/24 10:24 Eos # (Auto) 0.2 10^3/uL (0.0-0.8) 10/11/24 10:24 Baso # (Auto) 0.0 10^3/uL (0.0-0.1) 10/11/24 10:24 Nucleated RBC % (auto) 0 % 10/11/24 10:24 Nucleated RBCs # 0.0 /100WBC 10/11/24 10:24 Sodium 137 mmol/L (136-145) 10/11/24 10:24 Potassium 4.4 mmol/L (3.5-5.1) 10/11/24 10:24 Chloride 96 mmol/L (98-107) L 10/11/24 10:24 Carbon Dioxide 23 mmol/L (22-29) 10/11/24 10:24 Anion Gap 22.4 (5-19) H 10/11/24 10:24 BUN 19 mg/dL (8-23) 10/11/24 10:24 Creatinine 1.4 mg/dL (0.5-0.9) H 10/11/24 10:24 GFR Calculation Not Reportable 10/11/24 10:24 Glucose 152 mg/dL (65-115) H 10/11/24 10:24 Calculated Osmolality 289 mOsm/kg (285-295) 10/11/24 10:24 Lactic Acid 5.5 mmol/L (0.5-2.2) H* 10/11/24 10:24 Lactic Acid (Sepsis) 2.2 mmol/L (0.5-2.2) 10/11/24 14:21 Calcium 10.7 mg/dL (8.5-10.5) H 10/11/24 10:24 Total Bilirubin 0.6 mg/dL (0.15-1.2) 10/11/24 10:24 AST 43 U/L (0-32) H 10/11/24 10:24 ALT 28 U/L (0-33) 10/11/24 10:24 Alkaline Phosphatase 94 U/L (35-105) 10/11/24 10:24 Troponin T Baseline 41 ng/L (0-10) H 10/11/24 10:24 Troponin T 120 Minute 34.33 ng/L (0-10) H 10/11/24 12:55 Delta Troponin T -6.67 ABS# (0-10) L 10/11/24 12:55 Total Protein 7.9 g/dL (6.6-8.7) 10/11/24 10:24 Albumin 4.9 g/dL (3.5-5.2) 10/11/24 10:24 Globulin 3.0 g/dL (1.3-4.6) 10/11/24 10:24 Urine Color Yellow (Yellow) 10/11/24 13:57 Urine Appearance Cloudy (CLEAR) A 10/11/24 13:57 Urine pH 5.5 (5-7) 10/11/24 13:57 Ur Specific Cunningham 1.023 (1.005-1.030) 10/11/24 13:57 Urine Protein 1+ (Negative) A 10/11/24 13:57 Urine Glucose (UA) Negative (Normal) 10/11/24 13:57 Urine Ketones Trace (Negative) 10/11/24 13:57 Urine Blood Negative (Negative) 10/11/24 13:57 Urine Nitrate Negative (Negative) 10/11/24 13:57 Urine Bilirubin Negative (Negative) 10/11/24 13:57 Urine Urobilinogen 1.0 mg/dL (Negative) 10/11/24 13:57 Ur Leukocyte Esterase 1+ (Negative) A 10/11/24 13:57 Urine RBC 0-4 /hpf (0-2) H 10/11/24 13:57 Urine WBC 0-4 /hpf (0-5) H 10/11/24 13:57 Ur Squamous Epith Cells 40-55 /hpf (0-5) H 10/11/24 13:57 Calcium Oxalate Crystal 55-80 /hpf H 10/11/24 13:57 Amorphous Sediment Not Reportable 10/11/24 13:57 Urine Bacteria Trace /hpf (NONE) 10/11/24 13:57 Hyaline Casts 80-100 /lpf H 10/11/24 13:57 Urine Mucus Trace /hpf 10/11/24 13:57 All radiology interpretation(s) finalized by discharge Discharge Plan Discharge Patient Disposition: Home Clinical Impression: Seizure, Syncope Condition: Stable Prescriptions: No Action meloxicam 15 mg tablet 15 mg PO DAILY Qty: 30 1RF magnesium oxide 500 mg tablet 500 mg PO DAILY lisinopril 20 mg tablet 20 mg PO DAILY Qty: 90 3RF hydrocodone-acetaminophen 10-325 mg tablet 1 tab PO Q6H 30 Days Qty: 90 0RF Hold Instructions: Shortage metoprolol tartrate 50 mg tablet 50 mg PO BID Qty: 60 0RF Rx Instructions: pt needs a follow up appt for further refills venlafaxine 150 mg capsule,extended release 24hr 150 mg PO DAILY Rx Instructions: TAKE 1 CAPSULE BY MOUTH DAILY allopurinol 300 mg tablet 300 mg PO DAILY Rx Instructions: TAKE 1 TABLET BY MOUTH DAILY Discharge Orders: Discharge ED (Routine); Ordered 10/11/24 Ordered By: Pito Kinney Referrals: Santiago King MD [Primary Care Provider] - Discharge Diet: Usual diet Discharge Activity: Increase activity as tolerated Patient Instructions: Opioid Safety, Pain Management Activity Restrictions/Additional Instructions: Thank you for choosing [facility] for your healthcare needs today. It is very important that you follow up as instructed or that you return to the Emergency Department should you have concerns or if your condition changes or worsens in any way. You are seen in the emergency room after an episode of work. You had reportedly lost consciousness. When you arrived to the emergency room you are slightly confused some of your lab work indicates she may have had a seizure. At this point you do not need to be hospitalized but you should have some outpatient testing done. Will schedule you for an EEG and an echocardiogram follow-up with neurology. Coding Level of Care Code ED Cocoa Mill Operator for Ana Ragsdale
--- NOTE | 2024-10-11 11:56 | CT_ITS ---
WS: [id number] CT HEAD NONCONTRAST HISTORY: Syncope TECHNIQUE: Contiguous axial imaging performed through the brain. Bone and soft tissue windows. Sagitt al and coronal reformats reviewed. All CT scans at [facility] use at least one of these dose optimization techniques: automated exposure control; mA and/or kV adjustment per patient size (includ es targeted exams where dose is matched to clinical indication); or iterative reconstruction. DLP: 1126.13 COMPARISON: None available. No acute intracranial hemorrhage, midline shift or mass effect. Marked cerebral and cerebellar atrophy with mild small vessel disease. Tiny lacunar infarct in the LE FT temitope. Ventricles: Ventricles extra-axial spaces are dilated on the basis of atrophy. No inferior displacement of the cerebellar tonsils. Paranasal sinuses: As visualized are clear. Mastoid air cells: Well pneumatized. Calvarium and scalp: Skull is intact with no soft tissue edema or swelling. CT/CT head thrombolytic [id number] IMPRESSION: 1. No acute intracranial hemorrhage or edema. 2. Marked cerebral and cerebellar atrophy with mild small vessel ischemic dise ase. 3. Remote lacunar infarct LEFT temitope.
[2024-10-11 12:27] LABS: Basophils % 0.4 %; Eosinophils # 0.2 10^3/uL (0.0-0.8); Eosinophils % 2.2 %; Hematocrit 45.6 % (36-47); Lymphocytes # 3.4 10^3/uL (0.8-4.8); Lymphocytes % 33.8 %; Mean Corpuscular HGB Conc 33.8 g/dL (30-55); Mean Corpuscular Hemoglobin 31.2 pg (27-33); Mean Corpuscular Volume 92.3 fl (85-98); Mean Platelet Volume 10.5 fL (7.4-10.4); Monocytes # 0.5 10^3/uL (0.2-0.9); Monocytes % 5.3 %; Neutrophils # 5.78 10^3/uL (1.8-7.7); Neutrophils % 57.8 %; Nucleated Red Blood Cells % 0 %; Platelet Count 361 10^3/cmm (157-399); Red Blood Count 4.94 10^6/uL (3.85-5.65); Red Cell Distribution Width 12.6 % (12.1-15.1)
[2024-10-11 12:33] LABS: Alanine Aminotransferase 28 U/L (0-33); Albumin Level 4.9 g/dL (3.5-5.2); Alkaline Phosphatase 94 U/L (35-105); Anion Gap 22.4 (5-19); Aspartate Amino Transferase 43 U/L (0-32); Blood Urea Nitrogen 19 mg/dL (8-23); Calcium 10.7 mg/dL (8.5-10.5); Carbon Dioxide 23 mmol/L (22-29); Chloride 96 mmol/L (98-107); Creatinine Clr Calc Pharmacy 35.4493; Glucose 152 mg/dL (65-115); Osmolality Calculated 289 mOsm/kg (285-295); Potassium 4.4 mmol/L (3.5-5.1); Sodium 137 mmol/L (136-145); Total Bilirubin 0.6 mg/dL (0.15-1.2); Total Protein 7.9 g/dL (6.6-8.7)
[2024-10-11 12:36] LABS: Troponin(5th) Baseline 41 ng/L (0-10)
[2024-10-11 12:40] LABS: Lactic Sepsis W/Reflex 5.5 mmol/L (0.5-2.2)
[2024-10-11 13:25] LABS: Troponin 5 2HR 34.33 ng/L (0-10)
[2024-10-11 13:30] LABS: Troponin 5 2HR Delta -6.67 ABS# (0-10)
--- NOTE | 2024-10-11 13:39 | ECG_ITS ---
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
[2024-10-11 13:59] LABS: Reflex Lactate Order REFLEX LACTIC ORDERD
[2024-10-11 14:09] LABS: Bilirubin Urine Negative (Negative); Blood Urine Negative (Negative); Glucose Urine UA Negative (Normal); Ketones Urine Trace (Negative); Leukocyte Esterase Urine 1+ (Negative); Nitrate Urine Negative (Negative); Protein Urine 1+ (Negative); Specific Gravity, Urine 1.023 (1.005-1.030); Urine Appearance Cloudy (CLEAR); Urine Color Yellow (Yellow); pH Urine 5.5 (5-7)
[2024-10-11 14:12] LABS: Add Urine Microscopic? YES
[2024-10-11 14:46] LABS: Lactic Acid level (Lactate) 2.2 mmol/L (0.5-2.2)
[2024-10-11 14:54] LABS: UA Manual Slide Review YES; UA Slide Review UA Slide Review Perf
[2024-10-11 14:55] LABS: RBC Urine 0-4 /hpf (0-2); WBC Urine 0-4 /hpf (0-5)
[2024-10-11 14:56] LABS: Add Urine Culture? No; Bacteria Urine TRACE /hpf; Calcium Oxalate Crystals Urine 55-80 /hpf; Hyaline Casts Urine 80-100 /lpf; Mucus Urine TRACE /hpf; Squamous Epithelial Cell Urine 40-55 /hpf (0-5)
--- NOTE | 2024-10-14 08:12 | DCPLANNER ---
faxed outpatient echo or to scheduling
== END 2024-10-11 15:26 | disposition home or self-care (01) ==
PROVIDERS: Emergency Provider Family Medicine; PCP Family Medicine
DX: R55 Syncope and collapse (principal); R56.9 Unspecified convulsions; I10 Essential (primary) hypertension
CPT/HCPCS: 36415; 70450; 71045; 80053; 81001; 83605; 84484; 85025; 93005; 99285

== ENCOUNTER 2024-11-05 07:49 | Outpatient (CLI) | payer MEDICARE, SELFPAY ==
--- NOTE | 2024-11-05 07:55 | USCV_ITS ---
Marilee Arreaga Age: 78 Gender: F : 1945 Exam Date: 11/05/2024 08:59 Ordering Phys: Pito Kinney DO Technologist: CT [place] [facility] [place]: BP: 144 / 80 HR: 63 Rhythm: Sinus Technical Quality: Adequate MEASUREMENTS (Male / Female) Normal Values 2D ECHO LVOT Diameter 2.0 cm LV Ejection Fraction MOD 4C 52.0 % LV Ejection Fraction MOD 2C 70.2 % LV Ejection Fraction 2C AL 70.9 % LA Diameter 3.5 cm RA Systolic Volume 4C AL 38.9 ml RA Systolic Volume 4C MOD 38.8 ml LA Sys Volume AL 49.0 cm cubed LA Sys Volume Index AL 25.0 cm cubed/m squared Aorta at Sinotubular Diameter 2.7 cm IVC Diameter 2.1 cm M-MODE LA Ao Ratio MM 2.0 AV Cusp Separation MM 1.7 cm DOPPLER AV Peak Velocity 116.0 cm/s LVOT Peak Velocity 79.0 cm/s AV Area Cont Eq vti 2.6 cm squared AV Area Cont Eq pk 2.2 cm squared MV Peak Velocity 98.0 cm/s MV Area PHT 3.7 cm squared Mitral E to A Ratio 0.8 TV Peak Velocity 200.5 cm/s TR Peak Velocity 249.0 cm/s TR Peak Gradient 24.8 mmHg TR Mean Velocity 184.0 cm/s TR Mean Gradient 15.1 mmHg TR Velocity Time Integral 76.1 cm TV Peak E Velocity 66.0 cm/s PV Peak Velocity 78.5 cm/s FINDINGS Left Ventricle Left ventricle is normal size. LV systolic function is normal with EF of 55-60%. No regional wall motion abnormalities are seen. Grade 1 diastolic dysfunction Right Ventricle Normal in size and function Right Atrium Normal in size Left Atrium Normal in size Mitral Valve Structurally normal mitral valve. Mild to moderate mitral regurgitation. Aortic Valve Aortic valve is thickened. No significant stenosis. Mild aortic regurgitation Tricuspid Valve Mild tricuspid regurgitation. Pulmonary artery systolic pressure is normal Pulmonic Valve Not well visualized Pericardium Normal Aorta Normal in size IVC Appears to be normal CONCLUSIONS LV systolic function is normal with EF of 55 to 60%. Grade 1 diastolic dysfunction. Mild to moderate mitral regurgitation Mild aortic regurgitation Mild tricuspid regurgitation Milo Ely MD (Electronically Signed) Final Date: 06 November 2024 10:21 S
== END 2024-11-05 07:50 | disposition home or self-care (01) ==
PROVIDERS: PCP Family Medicine; Visit Provider Family Medicine
DX: I50.30 Unspecified diastolic (congestive) heart failure (principal); I34.0 Nonrheumatic mitral (valve) insufficiency; R56.9 Unspecified convulsions
CPT/HCPCS: 93306

== ENCOUNTER 2025-03-21 16:52 | Emergency (ER) | payer MEDICARE, SELFPAY ==
[2025-03-21 17:19] VITALS: BP 187/96; PULSE 90; TEMP 36.7; O2SAT 99; BMI 25.8
--- NOTE | 2025-03-21 18:16 | CTR_ITS ---
PROCEDURE INFORMATION: Exam: CT Head Without Contrast Exam date and time: 03/21/2025 6:40 PM Age: 79 years old Clinical indication: Injury or trauma; Fall; Blunt trauma (contusions or hematomas); With loss of consciousness; Not specified; Additional info: Head injury TECHNIQUE: Imaging protocol: Computed tomography of the head without contrast. Radiation optimization: All CT scans at this facility use at least one of these dose optimization techniques: automated exposure control; mA and/or kV adjustment per patient size (includes targeted exams where dose is matched to clinical indication); or iterative reconstruction. COMPARISON: CT head thrombolytic [id number] 10/11/2024 12:01 PM RADIATION DOSE METRICS: Total DLP (mGy-cm): 1284.3 FINDINGS: Brain: No hemorrhage. No edema. Moderate diffuse cerebral atrophy and sequela of chronic small vessel ischemic disease. No mass effect. Cerebral ventricles: No ventriculomegaly. Paranasal sinuses: Visualized sinuses are unremarkable. No fluid levels. Mastoid air cells: Visualized mastoid air cells are well aerated. Bones: Unremarkable. No acute fracture. Soft tissues: Unremarkable. CT/CT head wo con* [id number] IMPRESSION: No acute intracranial abnormality.
--- NOTE | 2025-03-21 18:16 | CTR_ITS ---
PROCEDURE INFORMATION: Exam: CT Cervical Spine Without Contrast Exam date and time: 03/21/2025 6:40 PM Age: 79 years old Clinical indication: Injury or trauma; Fall; Blunt trauma; Additional info: Fall, head injury TECHNIQUE: Imaging protocol: Computed tomography of the cervical spine without contrast. Radiation optimization: All CT scans at this facility use at least one of these dose optimization techniques: automated exposure control; mA and/or kV adjustment per patient size (includes targeted exams where dose is matched to clinical indication); or iterative reconstruction. COMPARISON: CT head thrombolytic [id number] 10/11/2024 12:01 PM RADIATION DOSE METRICS: Total DLP (mGy-cm): 221.8 FINDINGS: Bones: No acute fracture. Normal alignment. No significant disc bulge or herniation. No severe spinal canal stenosis. Lungs: Lung apices are normal. Soft tissues: Unremarkable. CT/CT cervical spin wo con* [id number] IMPRESSION: No acute findings.
--- NOTE | 2025-03-21 18:16 | CTR_ITS ---
PROCEDURE INFORMATION: Exam: CT Maxillofacial Without Contrast Exam date and time: 03/21/2025 6:40 PM Age: 79 years old Clinical indication: Injury or trauma; Fall; Blunt trauma (contusions or hematomas); Orbit/periorbital; Bilateral; Additional info: Fall, facial injury TECHNIQUE: Imaging protocol: Computed tomography of the face without contrast. Radiation optimization: All CT scans at this facility use at least one of these dose optimization techniques: automated exposure control; mA and/or kV adjustment per patient size (includes targeted exams where dose is matched to clinical indication); or iterative reconstruction. COMPARISON: CT head thrombolytic [id number] 10/11/2024 12:01 PM RADIATION DOSE METRICS: Total DLP (mGy-cm): 605.9 FINDINGS: Paranasal sinuses: No air-fluid levels. Orbital cavities: Orbits are normal. Globes are unremarkable. Bones: No acute fracture. Soft tissues: Unremarkable. CT/CT facial bones wo con* [id number] IMPRESSION: No acute findings.
[2025-03-21 19:23] VITALS: BP 211/95; PULSE 87; RESP 16; O2SAT 98
--- NOTE | 2025-03-21 19:37 | W.ED.HEATRA ---
HPI - Head Injury General: Chief complaint: Head Injury Stated complaint: Fall, Face injury Time Seen by Provider: 03/21/25 19:18 History of Present Illness: 79-year-old female presents following a fall. Patient is unsure of the cause of her fall. She does have some abrasions over her nose and some contusions over her bilateral eyes and a forehead contusion. Associated symptoms: Deny nausea or vomiting Related Data Home Medications ?Medication ?Instructions ?Recorded ?Confirmed magnesium oxide 500 mg PO DAILY 08/06/22 02/15/25 allopurinol 300 mg tablet 300 mg PO DAILY 10/11/24 02/15/25 Previous Rx's ?Medication ?Instructions ?Recorded lisinopril 20 mg tablet 20 mg PO DAILY #90 tabs 09/23/23 nitrofurantoin 100 mg PO Q12H 7 days #14 caps 11/18/24 monohydrate/macrocrystals 100 mg capsule (Macrobid) metoprolol tartrate 50 mg tablet 50 mg PO BID #10 tabs 11/29/24 venlafaxine 150 mg See Rx Instructions .Route 01/31/25 capsule,extended release 24 hr .COMPLEX #30 caps hydrocodone 10 mg-acetaminophen 1 tab PO Q6H 30 days #90 tabs 02/10/25 325 mg tablet valacyclovir 1 gram tablet 1,000 mg PO QDAY Shingles #30 tabs 02/15/25 gabapentin 100 mg capsule 100 mg PO BID #30 caps 02/16/25 meloxicam 15 mg tablet See Rx Instructions .Route 03/03/25 .COMPLEX #30 tabs Allergies Allergy/AdvReac Type Severity Reaction Status Date / Time cephalexin (From Keflex) Allergy rash Verified 03/21/25 17:26 erythromycin base Allergy rash Verified 03/21/25 17:26 Penicillins Allergy rash Verified 03/21/25 17:26 Sulfa (Sulfonamide Allergy rash Verified 03/21/25 17:26 Antibiotics) Review of Systems Const: Denies: fever(s) or chills Card: Denies: chest pain or palpitations Resp: Denies: dyspnea or wheezing GI: Denies: abdominal pain, nausea or vomiting Skin/Breast: Reports: other (Facial contusions and abrasions) Neuro: Denies: lack of coordination or dizziness [facility] PFSH: Medical History Diaphoresis Otitis media of left ear Depression History of irritable bowel syndrome HTN (hypertension), benign Surgical History History of abdominal surgery Prolapse , not sure, history of bladder stimulator History of delivery Family History Father Cancer Mother Dementia Sister Diabetes Alzheimer's dementia Denies family history of CAD (coronary artery disease) Clotting disorder Chronic kidney disease (CKD) Suicide Anesthesia complication Bleeding disorder Lung disease Stroke Social History Smoking and tobacco/nicotine status: never used tobacco/nicotine Alcohol intake: current Alcohol intake frequency: holidays/special occasions only Substance/Drug Use: never Physical Exam Const: COMMON NORMALS: no acute distress, patient oriented x3, no limitations and alert HENMT: OTHER: Abrasions over the nose, bilateral facial contusion and bruising along with a small hematoma forehead Eye: COMMON NORMALS: Equal, round and reactive pupils present and EOMs intact bilaterally PUPIL: Yes Equal, round and reactive pupils present Resp: COMMON NORMALS: normal respiratory effort and clear to auscultation bilaterally AUSCULTATION: clear to auscultation bilaterally Cardio: COMMON NORMALS: regular rate and regular rhythm RATE: regular rate RHYTHM: regular rhythm Extremity: COMMON NORMALS: normal to inspection, full ROM and capillary refill normal Neuro: COMMON NORMALS: patient oriented x3, CN's II-XII intact bilaterally, moves all extremities and no focal motor deficits SENSORIUM/ORIENTATION: Yes alert Psych: COMMON NORMALS: mental status grossly normal, cooperative, normal affect and speech normal SPEECH: Yes normal speech Skin: NARRATIVE SKIN EXAM: Bilateral periorbital facial bruising, forehead hematoma and abrasions on nose Course Vital Signs: Vital signs: Vital Signs Temperature 98.0 F 03/21/25 17:19 Pulse Rate 87 03/21/25 19:23 Respiratory Rate 16 03/21/25 19:23 Blood Pressure 211/95 03/21/25 19:23 Pulse Oximetry 98 03/21/25 19:23 Oxygen Delivery Me thod Room Air 03/21/25 19:23 MDM - Head Injury Medcial Decision Making Patient's imaging was ordered and reviewed and shows no acute findings. Patient did have elevated blood pressure however she did not want me to address that and thinks maybe she got take her pain meds. Patient is unsure if she had a syncope event and did not want me to address this with any further evaluation. She reports she has a appointment with her primary care provider tomorrow and will just have them evaluate her blood pressure if it continues to be elevated and any other concerns she might have. Patient's imaging was negative and she was discharged home as requested. Lab Data Radiology Impressions Cervical Spine CT 03/21/25 18:16 IMPRESSION: No acute findings. Face CT 03/21/25 18:16 IMPRESSION: No acute findings. Head CT 03/21/25 18:16 IMPRESSION: No acute intracranial abnormality. All radiology interpretation(s) finalized by discharge Discharge Plan Discharge Condition: Stable Prescriptions: No Action magnesium oxide 500 mg tablet 500 mg PO DAILY valacyclovir 1 gram tablet 1,000 mg PO QDAY Qty: 30 6RF Rx Instructions: Suppressive therapy gabapentin 100 mg capsule 100 mg PO BID Qty: 30 2RF lisinopril 20 mg tablet 20 mg PO DAILY Qty: 90 3RF nitrofurantoin monohyd/m-cryst [Macrobid] 100 mg capsule 100 mg PO Q12H 7 Days Qty: 14 0RF Rx Instructions: must administer with a meal/food metoprolol tartrate 50 mg tablet 50 mg PO BID Qty: 10 0RF Rx Instructions: pt needs appt for further refills venlafaxine 150 mg capsule,extended release 24hr See Rx Instructions .ROUTE .COMPLEX Qty: 30 6RF Dose Instruction: TAKE 1 CAPSULE BY MOUTH DAILY Rx Instructions: TAKE 1 CAPSULE BY MOUTH DAILY hydrocodone-acetaminophen 10-325 mg tablet 1 tab PO Q6H 30 Days Qty: 90 0RF meloxicam 15 mg tablet See Rx Instructions .ROUTE .COMPLEX Qty: 30 0RF Dose Instruction: TAKE 1 TABLET BY MOUTH DAILY Rx Instructions: TAKE 1 TABLET BY MOUTH DAILY allopurinol 300 mg tablet 300 mg PO DAILY Rx Instructions: TAKE 1 TABLET BY MOUTH DAILY Referrals: Santiago King MD [Primary Care Provider, Family Practice] Print Language: Citizen Of [place] Coding Level of Care Code ED Consumer Loan Processor for Ana Ragsdale
[2025-03-21 20:05] VITALS: BP 195/106; PULSE 89; RESP 16; O2SAT 99
== END 2025-03-21 20:06 | disposition home or self-care (01) ==
PROVIDERS: Emergency Provider Student in an Organized Health Care Education/Training Program; PCP Family Medicine
DX: S00.83XA Contusion of other part of head, initial encounter (principal); S00.31XA Abrasion of nose, initial encounter; S00.12XA Contusion of left eyelid and periocular area, initial encounter; S00.11XA Contusion of right eyelid and periocular area, initial encounter; I10 Essential (primary) hypertension; W19.XXXA Unspecified fall, initial encounter
CPT/HCPCS: 70450; 70486; 72125; 99284

== ENCOUNTER → 2025-07-12 13:05 | Outpatient (BNVA) | payer MEDICARE, SELFPAY | PROVIDERS: PCP Family Medicine | DX: N39.0 Urinary tract infection, site not specified (principal) | CPT/HCPCS: 81000 ==

== ENCOUNTER → 2025-07-13 13:49 | Outpatient (BNVA) | payer MEDICARE, SELFPAY | PROVIDERS: PCP Family Medicine | DX: N39.0 Urinary tract infection, site not specified (principal) | CPT/HCPCS: 87086 ==

== ENCOUNTER → 2025-10-28 10:17 | Outpatient (BNVA) | payer MEDICARE, SELFPAY | PROVIDERS: PCP Family Medicine; Visit Provider Family Medicine | DX: Z51.81 Encounter for therapeutic drug level monitoring (principal); R10.9 Unspecified abdominal pain | CPT/HCPCS: 80053; 85025; 86141 ==